=== PATIENT | female | born 1965 | race Caucasian/White ===

== ENCOUNTER 2025-05-19 22:03 | Inpatient (IN) ==
--- NOTE | 2025-05-19 22:35 | Emergency Department Note ---
Impression & Plan Intractable nausea and vomiting Admission ED Provider Note HPI: History obtained from patient. The patient is a 59-year-old female who presents emergency department with intractable nausea and vomiting. Patient states that the symptoms have been ongoing for the past several days, she is noted to have started Zepbound about 2 weeks ago and states she just had a dosage increased on Monday. Patient was seen here in the emergency room earlier today and ultimately discharged home following symptomatic care and lab work. Patient states that she continued to be symptomatic throughout the evening and therefore came back to the ER to be assessed. On arrival here to the ED the patient is actively dry heaving, she is mildly hypertensive but otherwise hemodynamically stable. ROS: - Per HPI Differential Diagnosis: Small bowel obstruction, adverse reaction to medication, gastroparesis, acute cholecystitis, acute appendicitis, viral gastroenteritis, amongst other potential pathologies. *Outpatient medications and allergy history reviewed. PE: General: Alert HEENT: Normocephalic, trachea midline Eyes: Extraocular eye movement is intact, no scleral erythema Pulmonary: Clear to auscultation bilaterally, no wheezing Cardio: Regular rate and rhythm GI: Abdomen is soft to palpation : No suprapubic tenderness MSK: No evidence of trauma or malformation of the extremities, no edema Skin: No evidence of rash Neuro: Alert, no focal deficits Psychiatric: Cooperative INDEPENDENT INTERPRETATIONS: chair finisher: (As interpreted by myself): - An order was placed for continuous cardiac monitoring - Patient was noted to be in sinus rhythm with a rate of 80 Interventions provided in ED: - IV fluid bolus, IV Zofran, IV Phenergan Medical Decision Making: IV was established and lab work obtained, patient was placed on design engineer products. Lab work shows no leukocytosis, hemoglobin is normal, platelet count is normal, CMP does not show any evidence of any critical findings, lactic acid is noted to be within normal limits, there is no evidence of acute kidney injury, lipase is normal. Urinalysis shows 2+ blood but no evidence of any ketones, no infection. CT imaging of the abdomen and pelvis was obtained, there is no evidence of any acute surgical abnormalities, nonspecific thickening of the colon is noted of which the patient was informed for outpatient follow-up. Specifically she was advised to follow-up with her PCP and gastroenterology in regards to potential colonoscopy for further assessment on a nonemergent basis. On my reassessment, the patient states that despite IV Zofran and IV Phenergan here in the ED she continues to feel nauseated. She does not feel that she can hold down any food or liquids. She is requesting inpatient admission. Case was discussed with the on-call hospitalist, Dr. Martin, and the patient was placed for admission in stable condition. Consultants/Discussions held with other healthcare providers: - Hospitalist, Dr. Martin Disposition discussion held by myself with: - Patient Diagnosis: 1. Intractable nausea and vomiting, acute 2. Adverse reaction to medication/GLP-1 Disposition: Admission Juvenal Dwyer DO Emergency Medicine Past Med/Surg History Problem List (Updated 05/20/25 @ 03:00 by Juvenal Dwyer DO) Intractable nausea and vomiting (Acute) Drug side effects (Acute) Intermittent lightheadedness (Acute) Diarrhea (Acute) Gastroenteritis (Acute) Hypertension (Chronic) Depression (Chronic) Lumbar radicular syndrome Narcotic dependence Medical History PTSD (post-traumatic stress disorder) Clostridium difficile infection Morbid obesity with BMI of 50.0-59.9, adult History of kidney stones Hx gestational diabetes Borderline diabetes mellitus Osteoarthritis Fibromyalgia Scoliosis Spinal stenosis GERD (gastroesophageal reflux disease) Schizoaffective disorder Anxiety Double vision with both eyes open since Hyperlipidemia Periodic heart flutter stress test was neg, all d/t stress; 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 Sleep apnea mild, no device Surgical History History of delivery History of root canal procedure History of bilateral tubal ligation History of dilatation and curettage x2 History of colonoscopy History of gynecologic surgery cryosurgery to cervical dysplasia History of vocal cord polypectomy Family History Mother Family history of diabetes mellitus Ovarian cancer Grandmother (Maternal) Family hx of colon cancer Aunt Breast cancer Grandfather Heart disease Father Heart disease Prostate cancer Other No family history of adverse response to anesthesia Denies family history of Colorectal cancer Social History Smoking Status: Never smoker Tobacco Type: Cigarettes Second Hand Exposure: No; Do You Dip or Chew Tobacco: No; Hx Alcohol Use: No Hx Substance Use: No Preferred Language: Swedish Communication Ability: Effective On Site Property Manager Required: No Beliefs That Will Affect Care: Druze Druze Beliefs: denominational Current Living Situation: Family Current Living Situation Comment: Lives with daughter and mother Feels Safe at Home: Yes Assistive Devices: Contacts and Glasses Allergies Allergies Allergy/AdvReac Type Severity Reaction Status Date / Time metoclopramide Allergy Severe "tongue Verified 07/22/24 13:52 goes rigid" risperidone Allergy Severe Tongue Verified 07/22/24 13:52 becomes rigid vancomycin Allergy Intermediate Red Man Verified 07/22/24 13:52 Syndrome codeine Allergy Mild Itchiness Verified 07/22/24 13:52 gabapentin AdvReac Severe Amnesia Verified 07/22/24 13:52 sumatriptan AdvReac Severe Hypotension--"drops Verified 07/22/24 13:52 so fast" duloxetine AdvReac Intermediate Lower Verified 07/22/24 13:52 extremity swelling hydroxyzine AdvReac Intermediate Hallucinati Verified 07/22/24 13:52 ng quetiapine [From Seroquel] AdvReac Intermediate leg Verified 07/22/24 13:52 swelling fluoxetine AdvReac Unknown didnt work Verified 07/22/24 13:52 Home Meds Home Medications Medication Instructions Recorded Confirmed atenolol 25 mg tablet 12.5 mg PO HS 05/15/18 07/22/24 olanzapine 10 mg tablet 10 mg PO HS 05/15/18 07/22/24 olanzapine 2.5 mg tablet 5 mg PO TIDM 05/15/18 07/22/24 tramadol 50 mg tablet 100 mg PO QID PRN Pain 05/15/18 07/22/24 cyclobenzaprine 10 mg tablet 10 mg PO TID PRN Muscle Spasm 12/15/18 07/22/24 bupropion HCl 100 mg tablet 100 mg PO QAM 02/01/19 07/22/24 lisinopril 10 mg tablet 10 mg PO HS 02/01/19 07/22/24 pantoprazole 40 mg tablet,delayed 40 mg PO QAM 02/01/19 07/22/24 release (Protonix) valerian root 100 mg capsule 400 mg PO QDD 02/04/20 07/22/24 ramelteon 8 mg tablet 8 mg PO HS sleep 12/27/20 07/22/24 acetaminophen 500 mg tablet 1,000 mg PO DIRECTED PRN Pain 01/27/22 07/22/24 (Tylenol Extra Strength) ondansetron HCl 4 mg tablet 4 mg PO Q6H PRN NAUSEA/VOMITING 01/27/22 07/22/24 atorvastatin 20 mg tablet 20 mg PO HS 01/15/24 07/22/24 spironolactone 25 mg tablet 25 mg PO DAILY 01/15/24 07/22/24 ibuprofen PO PRN 07/22/24 07/22/24 semaglutide (weight loss) 2.4 2.4 mg subcut Q7D 07/22/24 07/22/24 mg/0.75 mL subcutaneous pen injector ([facility]) Results & Data (ED) Vital Signs Vital Signs - 24 hr 05/19/25 22:17 05/19/25 22:42 05/19/25 22:58 Temperature 36.8 C Temperature Source Oral Pulse Rate 74 77 72 Respiratory Rate 16 22 Respiratory Effort / Characteristics Non-Labored Spontaneous Respiratory Depth Normal Blood Pressure 161/96 H 162/94 H Blood Pressure Mean 117 116 Pulse Oximetry 99 97 Oxygen Delivery Method Room Air Sepsis Recent Fever Within 48 Hours No Sepsis New/Unexplained Change in Mental Status N/A Sepsis Action Taken by Nursing No Action Required 05/20/25 00:00 05/20/25 01:00 05/20/25 02:00 Temperature Temperature Source Pulse Rate 72 70 75 Respiratory Rate 18 16 18 Respiratory Effort / Characteristics Respiratory Depth Blood Pressure 169/100 H 172/103 H 177/102 H Blood Pressure Mean 122 126 130 Pulse Oximetry 96 95 98 Oxygen Delivery Method Sepsis Recent Fever Within 48 Hours Sepsis New/Unexplained Change in Mental Status Sepsis Action Taken by Nursing 05/20/25 02:54 Temperature Temperature Source Pulse Rate 73 Respiratory Rate Respiratory Effort / Characteristics Respiratory Depth Blood Pressure Blood Pressure Mean Pulse Oximetry Oxygen Delivery Method Sepsis Recent Fever Within 48 Hours Sepsis New/Unexplained Change in Mental Status Sepsis Action Taken by Nursing Laboratory Data 05/19/25 22:37 05/19/25 22:37 Lab Results 05/19/25 05/19/25 Range/Units 22:37 23:38 WBC 8.63 (4.8-10.8) K/ul RBC 4.13 L (4.20-5.40) M/uL Hgb 13.5 (12.0-16.0) g/dl Hct 38.1 (37.0-47.0) % MCV 92.3 (80.0-100.0) fL MCH 32.7 (25.0-34.0) pg MCHC 35.4 (32.0-36.0) g/dL RDW Std Deviation 40.8 (36.4-46.3) fL RDW Coeff of Miguel 11.9 (11.5-14.5) % Plt Count 248 (130-400) K/uL MPV 9.1 L (9.4-12.4) fL Immature Gran % (Auto) 0.2 % Neut % (Auto) 82.5 % Lymph % (Auto) 10.3 % Nicholas % (Auto) 6.6 % Eos % (Auto) 0.2 % Baso % (Auto) 0.2 % Neut # (Auto) 7.11 H (1.40-6.50) K/uL Lymph # (Auto) 0.89 L (1.20-3.40) K/uL Nicholas # (Auto) 0.57 (0.11-0.59) K/uL Eos # (Auto) 0.02 (0.00-0.50) K/uL Baso # (Auto) 0.02 (0.00-0.20) K/uL Immature Gran # (Auto) 0.02 (0.01-0.20) K/uL Sodium 137 (136-145) mmol/L Potassium 3.9 (3.5-5.1) mmol/L Chloride 100 (98-107) mmol/L Carbon Dioxide 29 (21-32) mmol/L Anion Gap 8 (3-11) BUN 7 (6-23) mg/dl Creatinine 0.89 (0.6-1.2) mg/dl Est Cr Clr Drug Dosing 88.9 ml/min eGFR 75.57 BUN/Creatinine Ratio 7.9 L (10-20) Glucose 118 H (70-99(Fasting)) mg/dl Lactate 1.0 (0.4-2.0) mmol/L Calcium 9.1 (8.6-10.3) mg/dl Total Bilirubin 1.0 (0.2-1.0) mg/dl AST 15 (13-39) U/L ALT 20 (7-52) U/L Alkaline Phosphatase 71 (34-104) U/L Total Protein 7.1 (6.0-8.3) gm/dl Albumin 4.0 (3.4-5.0) gm/dl Globulin 3.1 (2.5-4.0) gm/dl Albumin/Globulin Ratio 1.3 (0.9-2) Lipase 25 (11-82) U/L Urine Color Yellow Urine Appearance Clear (Clear) Urine pH 7.5 (4.5-7.5) Ur Specific Kiefer 1.015 (1.000-1.030) Urine Protein Negative (Negative) Urine Glucose (UA) Negative (Negative) Urine Ketones Negative (Negative) Urine Blood 2+ H (Negative) Urine Nitrite Negative (Negative) Urine Bilirubin Negative (Negative) Urine Urobilinogen Negative (Negative) Ur Leukocyte Esterase Negative (Negative) Urine RBC 3-5 H (0-2) /hpf Urine WBC 0-5 (0-5) /hpf Ur Epithelial Cells 0-2 (0-2) /hpf Urine Bacteria None Seen (None Seen) Urine Comment Administered Medications Discontinued Medications Sodium Chloride (Nss) 1,000 mls @ 999 mls/hr IV .Q1H1M STA Stop: 05/19/25 23:28 Last Infusion: 05/19/25 23:55 Dose: Infused Documented By: Admin: 05/19/25 22:39 Dose: 999 mls/hr Documented By: MINDA Promethazine HCl (Phenergan) 12.5 mg in 50.5 mls @ 202 mls/hr IV NOW STA Stop: 05/19/25 23:44 Last Infusion: 05/19/25 23:55 Dose: Infused Documented By: Admin: 05/19/25 23:36 Dose: 202 mls/hr Documented By: MINDA Ioversol (Optiray 320 100ml) 93 ml IV ONCE ONE Stop: 05/19/25 23:25 Last Admin: 05/19/25 23:24 Dose: 93 ml Documented By: AN Ondansetron HCl (Ondansetron Inj 2 Mg/Ml 2 Ml Vial) 4 mg IV NOW STA Stop: 05/19/25 22:34 Last Admin: 05/19/25 22:43 Dose: 4 mg Documented By: MINDA Imaging Data Radiologist's Impression: Abdomen/Pelvis CT 05/19/25 22:32 Exam(s): CT ABDOMEN + PELVIS With Contrast IV Amt: 93cc opti 320 EXAM: CT Abdomen and Pelvis With Intravenous Contrast CLINICAL HISTORY: Reason for exam: Intractable nausea and vomiting. TECHNIQUE: Axial computed tomography images of the abdomen and pelvis with intravenous contrast. Automated exposure control was utilized for the study. A dose lowering technique was utilized adhering to the principles of ALARA. CONTRAST: Patient received 93cc opti 320 of IV contrast COMPARISON: CT Abdomen Pelvis dated 01/18/2019 FINDINGS: Lung bases: Unremarkable. No mass. No consolidation. ABDOMEN: Liver: Unremarkable. No mass. Gallbladder and bile ducts: Unremarkable. No calcified stones. No ductal dilation. Pancreas: Unremarkable. No mass. No ductal dilation. Spleen: Unremarkable. No splenomegaly. Adrenals: Unremarkable. No mass. Kidneys and ureters: Unremarkable. No solid mass. No hydronephrosis. Stomach and bowel: Mild colonic wall thickening of the splenic flexure and descending colon and mild surrounding fat stranding. Wall thickening versus nondistention of the rectosigmoid colon. Wall thickening of parts of the proximal to mid transverse colon. No bowel obstruction. PELVIS: Appendix: Normal appendix. Bladder: Unremarkable. No mass. Reproductive: Small uterine calcifications/fibroid. ABDOMEN and PELVIS: Intraperitoneal space: Trace fluid in the pelvis. No free air. Bones/joints: Degenerative changes of the spine. No acute fracture. No dislocation. Soft tissues: Small umbilical hernia containing fat. Vasculature: Unremarkable. No abdominal aortic aneurysm. Lymph nodes: Unremarkable. No enlarged lymph nodes. IMPRESSION: Wall thickening of parts of the colon and mild surrounding stranding as described above. Findings may represent infectious/inflammatory/ischemic colitis. Consider follow-up/colonoscopy to exclude malignancy. Electronically signed by: Ada Dsouza M.D. 05/20/25 02:32 AM Discharge Plan Visit Data Chief Complaint: Nausea Stated Complaint: ILLNESS ED Provider: Juvenal Dwyer Discharge Problem: Intractable nausea and vomiting Patient Disposition: Admitted As Inpatient Condition: Fair Forms Stand Alone Forms: [facility] Prescriptions Prescriptions: No Action Wegovy 2.4 mg/0.75 mL pen injector 2.4 mg subcut Q7D ibuprofen PO PRN spironolactone 25 mg tablet 25 mg PO DAILY cyclobenzaprine 10 mg Tablet 10 mg PO TID PRN (Reason: Muscle Spasm) pantoprazole [Protonix] 40 mg tablet,delayed release (DR/EC) 40 mg PO QAM bupropion HCl 100 mg Tablet 100 mg PO QAM lisinopril 10 mg Tablet 10 mg PO HS atorvastatin 20 mg tablet 20 mg PO HS valerian root 100 mg Capsule 400 mg PO QDD atenolol 25 mg Tablet 12.5 mg PO HS olanzapine 10 mg Tablet 10 mg PO HS olanzapine 2.5 mg Tablet 5 mg PO TIDM Rx Instructions: Dose per patient tramadol 50 mg Tablet 100 mg PO QID PRN (Reason: Pain) ramelteon 8 mg Tablet 8 mg PO HS ondansetron HCl [Zofran] 4 mg Tablet 4 mg PO Q6H PRN (Reason: NAUSEA/VOMITING) acetaminophen [Tylenol Extra Strength] 500 mg Tablet 1,000 mg PO DIRECTED PRN (Reason: Pain) Referrals Referrals: PCP,NO [Physician] -
[2025-05-19] MEDS: SODIUM CHLORIDE 0.9% 1,000 ML IV STA (22:39)
[2025-05-19] MEDS: ONDANSETRON INJ 2 MG/ML 2 ML VIAL IV STA (22:43)
[2025-05-19 22:54] LABS: Hematocrit (blood only) 38.1 % (37.0-47.0); Hemoglobin 13.5 g/dl (12.0-16.0); Immature Granulocytes # (auto) 0.02 K/uL (0.01-0.20); Immature Granulocytes % (auto) 0.2 %; Mean Corpuscular Hemoglobin 32.7 pg (25.0-34.0); Mean Corpuscular Volume 92.3 fL (80.0-100.0); Platelet Count 248 K/uL (130-400); RDW Standard Deviation 40.8 fL (36.4-46.3); Red Blood Count 4.13 M/uL (4.20-5.40); White Blood Count 8.63 K/ul (4.8-10.8)
[2025-05-19 23:13] LABS: Alanine Aminotransferase 20.0 U/L (7-52); Albumin Globulin Ratio 1.3 (0.9-2); Albumin Level 4.0 gm/dl (3.4-5.0); Alkaline Phosphatase 71.0 U/L (34-104); Anion Gap 8.0 (3-11); Bilirubin,Total 1.0 mg/dl (0.2-1.0); Blood Urea Nitrogen 7.0 mg/dl (6-23); Calcium 9.1 mg/dl (8.6-10.3); Carbon Dioxide 29.0 mmol/L (21-32); Chloride 100.0 mmol/L (98-107); Creatinine Clr Calc Pharmacy 88.9 ml/min; Globulin 3.1 gm/dl (2.5-4.0); Glucose 118.0 mg/dl (70-99(Fasting)); Lipase 25.0 U/L (11-82); Potassium 3.9 mmol/L (3.5-5.1); Sodium 137.0 mmol/L (136-145); Total Protein 7.1 gm/dl (6.0-8.3)
[2025-05-19] MEDS: OPTIRAY 320 100ml IV ONE (23:24)
[2025-05-19] MEDS: PROMETHAZINE 12.5 MG/50.5 ML BAG IV STA (23:36)
[2025-05-20 00:18] LABS: Appearance Urine Clear (Clear); Glucose Urine UA Negative (Negative)
[2025-05-20 01:15] LABS: Epithelial Cell Urine 0-2 /hpf (0-2)
--- NOTE | 2025-05-20 02:33 | CT Scan Report ---
Exam(s): CT ABDOMEN + PELVIS With Contrast IV Amt: 93cc opti 320 EXAM: CT Abdomen and Pelvis With Intravenous Contrast CLINICAL HISTORY: Reason for exam: Intractable nausea and vomiting. TECHNIQUE: Axial computed tomography images of the abdomen and pelvis with intravenous contrast. Automated exposure control was utilized for the study. A dose lowering technique was utilized adhering to the principles of ALARA. CONTRAST: Patient received 93cc opti 320 of IV contrast COMPARISON: CT Abdomen Pelvis dated 01/18/2019 FINDINGS: Lung bases: Unremarkable. No mass. No consolidation. ABDOMEN: Liver: Unremarkable. No mass. Gallbladder and bile ducts: Unremarkable. No calcified stones. No ductal dilation. Pancreas: Unremarkable. No mass. No ductal dilation. Spleen: Unremarkable. No splenomegaly. Adrenals: Unremarkable. No mass. Kidneys and ureters: Unremarkable. No solid mass. No hydronephrosis. Stomach and bowel: Mild colonic wall thickening of the splenic flexure and descending colon and mild surrounding fat stranding. Wall thickening versus nondistention of the rectosigmoid colon. Wall thickening of parts of the proximal to mid transverse colon. No bowel obstruction. PELVIS: Appendix: Normal appendix. Bladder: Unremarkable. No mass. Reproductive: Small uterine calcifications/fibroid. ABDOMEN and PELVIS: Intraperitoneal space: Trace fluid in the pelvis. No free air. Bones/joints: Degenerative changes of the spine. No acute fracture. No dislocation. Soft tissues: Small umbilical hernia containing fat. Vasculature: Unremarkable. No abdominal aortic aneurysm. Lymph nodes: Unremarkable. No enlarged lymph nodes. IMPRESSION: Wall thickening of parts of the colon and mild surrounding stranding as described above. Findings may represent infectious/inflammatory/ischemic colitis. Consider follow-up/colonoscopy to exclude malignancy. Electronically signed by: Ada Dsouza M.D. 05/20/25 02:32 AM
[2025-05-20 03:28] LABS: Magnesium 2.2 mg/dl (1.7-2.4)
[2025-05-20] MEDS: ONDANSETRON INJ 2 MG/ML 2 ML VIAL IV STA (03:29)
[2025-05-20] MEDS: FUROSEMIDE 40 MG/4 ML VIAL IV ONE (03:29)
--- NOTE | 2025-05-20 04:02 | History & Physical Report ---
Date of Service May 20, 2025 Assessment & Plan (1) CHF (congestive heart failure): Plan: Assessment and plan below following discussion of case with ED provider and reviewing patient history/pertinent normal/abnormal diagnostic test results. Acute CHF Pulmonary congestion on yesterday's chest x-ray Possibly from uncontrolled blood pressure due to gastroenteritis/Tirzepatide ADR hyperlipidemia, on statin Rx GORGE, as per records Hyperglycemia rule out DM, hx gestational DM as per records seizure disorder as per records, stable off maintenance medications hx fibromyalgia borderline personality disorder/anxiety/mood disorder, mild anxiety during exam past tobacco/alcohol abuse Admit to PCU Baseline BNP, Lasix 1 dose now Strict I/Os, daily weights CHF education Recheck CXR after Lasix TTE May benefit from Cardiology evaluation Clear liquid diet, antiemetics for patient's nausea/vomiting symptoms Check hemoglobin A1c DVT prophylaxis. Lovenox subcu Full code Text document was generated using [facility] voice recognition software. It may contain grammatical or spelling errors. Kindly contact undersigned for clarification of any documentation item in question. History of Present Illness Chief Complaint: Worsening nausea vomiting, SOB, high blood pressure Primary Care Provider: [facility] History obtained from patient, family, and records. Medical history significant for hypertension, hyperlipidemia, GORGE, gestational DM as per records, seizure disorder as per records, obesity on recently switched to tirzepatide, urolithiasis, migraine, fibromyalgia, borderline personality disorder as per records, anxiety/mood disorder, past tobacco/alcohol abuse. Last confinement 2013 for sepsis secondary to C. difficile colitis. Patient PCP recently switched her semaglutide to tirzepatide 2 weeks ago due to weight plateau from former medication. Tirzepatide dose increased last week. Few days later, patient noted achy abdominal pain nausea vomiting watery diarrhea symptoms with transient rectal bleeding. No diarrhea the last 48 hours. SOB worse on exertion. Denies headache, chest pain. Weight loss of 5 pounds since last week as per patient. Blood pressure noted to be high at home as per family. Patient consulted [facility] ER yesterday afternoon. Chest x-ray showed cardiomegaly with pulmonary vascular congestion and probable trace pleural effusions. Symptoms attributed to medications. Patient discharged home. Patient return to ER for worsening symptoms. Uncomfortable going home. Highest SBP of 170s documented at the ER. Medical History as above Surgical History : Cervical cryosurgery, laryngoscopy,D&C, BTL, dental surgery, section Family History : Ovarian cancer, DM, colon cancer, breast cancer, heart disease Personal/Social history : Past tobacco abuse, no EtOH intake, disabled Allergies Allergy/AdvReac Type Severity Reaction Status Date / Time metoclopramide Allergy Severe "tongue Verified 07/22/24 13:52 goes rigid" risperidone Allergy Severe Tongue Verified 07/22/24 13:52 becomes rigid vancomycin Allergy Intermediate Red Man Verified 07/22/24 13:52 Syndrome codeine Allergy Mild Itchiness Verified 07/22/24 13:52 gabapentin AdvReac Severe Amnesia Verified 07/22/24 13:52 sumatriptan AdvReac Severe Hypotension--"drops Verified 07/22/24 13:52 so fast" duloxetine AdvReac Intermediate Lower Verified 07/22/24 13:52 extremity swelling hydroxyzine AdvReac Intermediate Hallucinati Verified 07/22/24 13:52 ng quetiapine [From Seroquel] AdvReac Intermediate leg Verified 07/22/24 13:52 swelling fluoxetine AdvReac Unknown didnt work Verified 07/22/24 13:52 Home Medications Medication Instructions Recorded Confirmed Type atenolol 25 mg tablet 12.5 mg PO HS 05/15/18 05/20/25 History olanzapine 10 mg tablet 10 mg PO UD 05/15/18 05/20/25 History tramadol 50 mg tablet 100 mg PO QID PRN Pain 05/15/18 05/20/25 History cyclobenzaprine 10 mg tablet 10 mg PO TID PRN Muscle Spasm 12/15/18 05/20/25 History bupropion HCl 100 mg tablet 100 mg PO QAM 02/01/19 05/20/25 History lisinopril 10 mg tablet 10 mg PO HS 02/01/19 05/20/25 History pantoprazole 40 mg tablet,delayed 40 mg PO QAM 02/01/19 05/20/25 History release (Protonix) valerian root 100 mg capsule 400 mg PO QDD 02/04/20 05/20/25 History ramelteon 8 mg tablet 8 mg PO HS sleep 12/27/20 05/20/25 History acetaminophen 500 mg tablet 1,000 mg PO DIRECTED PRN Pain 01/27/22 05/20/25 History (Tylenol Extra Strength) ondansetron HCl 4 mg tablet 4 mg PO Q6H PRN NAUSEA/VOMITING 01/27/22 05/20/25 History atorvastatin 20 mg tablet 20 mg PO HS 01/15/24 05/20/25 History spironolactone 25 mg tablet 25 mg PO DAILY 01/15/24 05/20/25 History semaglutide (weight loss) 2.4 10 mg subcut Q7D 07/22/24 05/20/25 History mg/0.75 mL subcutaneous pen injector (Wegovy) ibuprofen 400 mg tablet 400 mg PO Q6H PRN Pain 05/20/25 05/20/25 History Past Med/Surg History Problem List (Updated 05/20/25 @ 10:08 by Sal Martin MD) CHF (congestive heart failure) Intractable nausea and vomiting (Acute) Drug side effects (Acute) Intermittent lightheadedness (Acute) Diarrhea (Acute) Gastroenteritis (Acute) Hypertension (Chronic) Depression (Chronic) Lumbar radicular syndrome Narcotic dependence Medical History PTSD (post-traumatic stress disorder) Clostridium difficile infection Morbid obesity with BMI of 50.0-59.9, adult History of kidney stones Hx gestational diabetes Borderline diabetes mellitus Osteoarthritis Fibromyalgia Scoliosis Spinal stenosis GERD (gastroesophageal reflux disease) Schizoaffective disorder Anxiety Double vision with both eyes open since Hyperlipidemia Periodic heart flutter stress test was neg, all d/t stress; 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 Sleep apnea mild, no device Surgical History History of delivery History of root canal procedure History of bilateral tubal ligation History of dilatation and curettage x2 History of colonoscopy History of gynecologic surgery cryosurgery to cervical dysplasia History of vocal cord polypectomy Family History Mother Family history of diabetes mellitus Ovarian cancer Grandmother (Maternal) Family hx of colon cancer Aunt Breast cancer Grandfather Heart disease Father Heart disease Prostate cancer Other No family history of adverse response to anesthesia Denies family history of Colorectal cancer Social History Smoking Status: Never smoker Tobacco Type: Cigarettes Second Hand Exposure: No; Do You Dip or Chew Tobacco: No; Hx Alcohol Use: No Hx Substance Use: No Preferred Language: Mohawk Communication Ability: Effective 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 Beliefs That Will Affect Care: None Current Living Situation: Family Current Living Situation Comment: Lives with daughter and mother Other Information That Helps Us Care for You: No Feels Safe at Home: Yes Safety Concerns: Feels Safe At This Time Assistive Devices: Glasses Review of Systems Review of Systems: As per HPI, all other systems reviewed and negative Physical Exam Physical Exam: GENERAL: Slightly uncomfortable, slightly anxious, morbidly obese, no respiratory distress SKIN: Normal color, warm HEENT: Bespectacled, pink palpebral conjunctivae, no ptosis, dry buccal mucosa NECK : Supple, no tenderness CHEST : Decreased breath sounds, no tenderness HEART : RRR, no obvious murmurs ABDOMEN: Some distention, central abdominal tenderness EXTREMITIES : Minimal LE swelling, no LE tenderness, palpable pulses, no other conspicuous deformities noted NEUROLOGIC : Coherent, no facial asymmetry, no other gross focality Results & Data Results & Data Vital Signs (Past 12 Hours) Vital Signs Temp Pulse Resp BP Pulse Ox O2 Del Method 05/20/25 02:54 73 05/20/25 02:00 75 18 177/102 H 98 05/20/25 01:00 70 16 172/103 H 95 05/20/25 00:00 72 18 169/100 H 96 05/19/25 22:58 72 22 162/94 H 97 05/19/25 22:42 77 05/19/25 22:17 36.8 C 74 16 161/96 H 99 Room Air Laboratory Results Laboratory Results WBC 8.63 K/ul (4.8-10.8) 05/19/25 22:37 RBC 4.13 M/uL (4.20-5.40) L 05/19/25 22:37 Hgb 13.5 g/dl (12.0-16.0) 05/19/25 22:37 Hct 38.1 % (37.0-47.0) 05/19/25 22:37 MCV 92.3 fL (80.0-100.0) 05/19/25 22:37 MCH 32.7 pg (25.0-34.0) 05/19/25 22:37 MCHC 35.4 g/dL (32.0-36.0) 05/19/25 22:37 RDW Std Deviation 40.8 fL (36.4-46.3) 05/19/25 22:37 RDW Coeff of Miguel 11.9 % (11.5-14.5) 05/19/25 22:37 Plt Count 248 K/uL (130-400) 05/19/25 22:37 MPV 9.1 fL (9.4-12.4) L 05/19/25 22:37 Immature Gran % (Auto) 0.2 % 05/19/25 22:37 Neut % (Auto) 82.5 % 05/19/25:37 Lymph % (Auto) 10.3 % 05/19/25:37 [place] % (Auto) 6.6 % 05/19/25: Eos % (Auto) 0.2 % 05/19/25: Baso % (Auto) 0.2 % 05/19/25:37 Neut # (Auto) 7.11 K/uL (1.40-6.50) H 05/19/25:37 Lymph # (Auto) 0.89 K/uL (1.20-3.40) L 05/19/25 22:37 [place] # (Auto) 0.57 K/uL (0.11-0.59) 05/19/25 22:37 Eos # (Auto) 0.02 K/uL (0.00-0.50) 05/19/25 22:37 Baso # (Auto) 0.02 K/uL (0.00-0.20) 05/19/25 22:37 Immature Gran # (Auto) 0.02 K/uL (0.01-0.20) 05/19/25 22:37 Sodium 137 mmol/L (136-145) 05/19/25 22:37 Potassium 3.9 mmol/L (3.5-5.1) 05/19/25 22:37 Chloride 100 mmol/L (98-107) 05/19/25 22:37 Carbon Dioxide 29 mmol/L (21-32) 05/19/25 22:37 Anion Gap 8 (3-11) 05/19/25 22:37 BUN 7 mg/dl (6-23) 05/19/25 22:37 Creatinine 0.89 mg/dl (0.6-1.2) 05/19/25 22:37 Est Cr Clr Drug Dosing 88.9 ml/min 05/19/25 22:37 eGFR 75.57 05/19/25 22:37 BUN/Creatinine Ratio 7.9 (10-20) L 05/19/25 22:37 Glucose 118 mg/dl (70-99(Fasting)) H 05/19/25 22:37 Lactate 1.0 mmol/L (0.4-2.0) 05/19/25 22:37 Calcium 9.1 mg/dl (8.6-10.3) 05/19/25 22:37 Magnesium 2.2 mg/dl (1.7-2.4) 05/19/25:37 Total Bilirubin 1.0 mg/dl (0.2-1.0) 05/19/25 22:37 AST 15 U/L (13-39) 05/19/25 22:37 ALT 20 U/L (7-52) 05/19/25 22:37 Alkaline Phosphatase 71 U/L (34-104) 05/19/25 22:37 Troponin I High Sens 7.1 pg/ml (0-14) 05/19/25 22:37 Total Protein 7.1 gm/dl (6.0-8.3) 05/19/25 22:37 Albumin 4.0 gm/dl (3.4-5.0) 05/19/25 22:37 Globulin 3.1 gm/dl (2.5-4.0) 05/19/25 22:37 Albumin/Globulin Ratio 1.3 (0.9-2) 05/19/25 22:37 Lipase 25 U/L (11-82) 05/19/25 22:37 Urine Color Yellow 05/19/25 23:38 Urine Appearance Clear (Clear) 05/19/25 23:38 Urine pH 7.5 (4.5-7.5) 05/19/25 23:38 Ur Specific [place] 1.015 (1.000-1.030) 05/19/25 23:38 Urine Protein Negative (Negative) 05/19/25 23:38 Urine Glucose (UA) Negative (Negative) 05/19/25 23:38 Urine Ketones Negative (Negative) 05/19/25 23:38 Urine Blood 2+ (Negative) H 05/19/25 23:38 Urine Nitrite Negative (Negative) 05/19/25 23:38 Urine Bilirubin Negative (Negative) 05/19/25 23:38 Urine Urobilinogen Negative (Negative) 05/19/25 23:38 Ur Leukocyte Esterase Negative (Negative) 05/19/25 23:38 Urine RBC 3-5 /hpf (0-2) H 05/19/25 23:38 Urine WBC 0-5 /hpf (0-5) 05/19/25 23:38 Ur Epithelial Cells 0-2 /hpf (0-2) 05/19/25 23:38 Urine Bacteria None Seen (None Seen) 05/19/25 23:38 Urine Comment 05/19/25 23:38 Impressions Abdomen/Pelvis CT 05/19/25 22:32 Exam(s): CT ABDOMEN + PELVIS With Contrast IV Amt: 93cc opti 320 EXAM: CT Abdomen and Pelvis With Intravenous Contrast CLINICAL HISTORY: Reason for exam: Intractable nausea and vomiting. TECHNIQUE: Axial computed tomography images of the abdomen and pelvis with intravenous contrast. Automated exposure control was utilized for the study. A dose lowering technique was utilized adhering to the principles of ALARA. CONTRAST: Patient received 93cc opti 320 of IV contrast COMPARISON: CT Abdomen Pelvis dated 01/18/2019 FINDINGS: Lung bases: Unremarkable. No mass. No consolidation. ABDOMEN: Liver: Unremarkable. No mass. Gallbladder and bile ducts: Unremarkable. No calcified stones. No ductal dilation. Pancreas: Unremarkable. No mass. No ductal dilation. Spleen: Unremarkable. No splenomegaly. Adrenals: Unremarkable. No mass. Kidneys and ureters: Unremarkable. No solid mass. No hydronephrosis. Stomach and bowel: Mild colonic wall thickening of the splenic flexure and descending colon and mild surrounding fat stranding. Wall thickening versus nondistention of the rectosigmoid colon. Wall thickening of parts of the proximal to mid transverse colon. No bowel obstruction. PELVIS: Appendix: Normal appendix. Bladder: Unremarkable. No mass. Reproductive: Small uterine calcifications/fibroid. ABDOMEN and PELVIS: Intraperitoneal space: Trace fluid in the pelvis. No free air. Bones/joints: Degenerative changes of the spine. No acute fracture. No dislocation. Soft tissues: Small umbilical hernia containing fat. Vasculature: Unremarkable. No abdominal aortic aneurysm. Lymph nodes: Unremarkable. No enlarged lymph nodes. IMPRESSION: Wall thickening of parts of the colon and mild surrounding stranding as described above. Findings may represent infectious/inflammatory/ischemic colitis. Consider follow-up/colonoscopy to exclude malignancy. Electronically signed by: Ada Dsouza M.D. 05/20/25 02:32 AM Diagnostic Findings EKG as per my interpretation (05/19/25) :Rate 80, NSR, normal axis, T wave abnormalities inferior leads
[2025-05-20] MEDS ORDERED: ACETAMINOPHEN 325 MG TAB PO PRN (04:32)
[2025-05-20 05:55] LABS: Hematocrit (blood only) 40.9 % (37.0-47.0); Hemoglobin 14.0 g/dl (12.0-16.0); Immature Granulocytes # (auto) 0.04 K/uL (0.01-0.20); Immature Granulocytes % (auto) 0.5 %; Mean Corpuscular Hemoglobin 31.4 pg (25.0-34.0); Mean Corpuscular Volume 91.7 fL (80.0-100.0); Platelet Count 267 K/uL (130-400); RDW Standard Deviation 40.2 fL (36.4-46.3); Red Blood Count 4.46 M/uL (4.20-5.40); White Blood Count 8.14 K/ul (4.8-10.8)
[2025-05-20] MEDS ORDERED: NITROGLYCERIN SL 0.4 MG/TAB TAB SL PRN (06:13)
[2025-05-20 06:15] LABS: Anion Gap 8.0 (3-11); Blood Urea Nitrogen 6.0 mg/dl (6-23); Calcium 9.4 mg/dl (8.6-10.3); Carbon Dioxide 32.0 mmol/L (21-32); Chloride 97.0 mmol/L (98-107); Creatinine Clr Calc Pharmacy 85.0 ml/min; Glucose 114.0 mg/dl (70-99(Fasting)); Potassium 3.6 mmol/L (3.5-5.1); Sodium 137.0 mmol/L (136-145)
[2025-05-20 06:30] LABS: Thyroid Stimulating Hormone 0.771 uIu/ml (0.300-4.500)
[2025-05-20] MEDS: PROMETHAZINE 12.5 MG/50.5 ML BAG IV PRN (06:30)
[2025-05-20 07:18] LABS: Hemoglobin A1C 5.3 % (4.5-5.6)
[2025-05-20] MEDS: SPIRONOLACTONE 25 MG TAB PO SCH (07:59)
[2025-05-20] MEDS: ENOXAPARIN INJ 40 MG/0.4 ML SYR SQ SCH (07:59)
--- NOTE | 2025-05-20 08:04 | XRay Report ---
EXAM: XR chest 1V portable CLINICAL HISTORY: chf ffup TECHNIQUE: Radiograph of chest was acquired. 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 FINDINGS: There is obscuration of right costophrenic angle. Rest of the lungs are clear. The cardiomediastinal silhouette is within normal limits. No acute osseous abnormality. IMPRESSION: 1. Obscured right costophrenic angle - possibility of mild right pleural effusion - new finding. Advise ultrasound chest correlation. Electronically signed by Mike Pineda 05-20-2025 08:03 AM
--- NOTE | 2025-05-20 12:24 | XCELERA ---
[id number]
--- NOTE | 2025-05-20 13:03 | Hospitalist Progress Note ---
Date of Service May 20, 2025 Assessment & Plan (1) CHF (congestive heart failure): Plan: Nausea, vomiting, transient diarrhea Suspected Tirzepatide adverse reaction DD: Viral gastroenteritis Recently started on Tirzepatide 2 weeks ago for weight loss and the dose was increased last week H/O C diff Colitis Patient states diarrhea resolved --CT ABD:Wall thickening of parts of the colon and mild surrounding stranding as described above. Findings may represent infectious/inflammatory/ischemic colitis. Consider follow-up/colonoscopy to exclude malignancy. --Hold Tirzepatide for now If recurrence of diarrhea, will check stool studies Advance diet as tolerated Will recommend to get colonoscopy as outpatient Chronic leg edema Chronic dyspnea on exertion Suspected acute on chronic diastolic heart failure Vs physical deconditioning --CXR: Obscured right costophrenic angle - possibility of mild right pleural effusion --BNP 121 --ECHO: EF 55 to 60%. Grade 1 diastolic dysfunction. 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 H/O Gestational diabetes HbA1c 5.3 Morbid obesity BMI 42 Other chronic conditions: Seizure disorder--currently not on medications Fibromyalgia/Chronic Pain Borderline personality disorder/anxiety/mood disorder Past tobacco/alcohol abuse Continue home medications as able DVT Px: Lovenox SQ Code Status Full code Admission and Anticipated Discharge Date Admission Date: May 20, 2025 Subjective Patient is seen and examined at bedside States having nausea but no vomiting today No recurrence of diarrhea Reports chronic abdominal pain and dyspnea on exertion No other complaints today Review of Systems Review of Systems: All systems reviewed & are unremarkable except as noted in Subjective Physical Exam Physical Exam: Physical Exam: Vitals signs as noted above General Appearance:Morbidly Obese, no apparent distress Head: normocephalic, Atraumatic Eyes: normal inspection, EOMI Neck: supple, Trachea midline Respiratory/Chest: Normal breath sounds, CTA, No accessory muscle use Cardiovascular: S1, S2, No murmur Abdomen/GI:Soft, mild tender, no guarding or rigidity, bowel sounds present Extremities/Musculoskeletal:normal inspection, Trace pedal edema Neurologic/Psych:AAOX3, grossly no focal neurological deficits Skin: normal color, warm Results & Data Results & Data Vital Signs (Past 12 Hours) Vital Signs Temp Pulse Pulse Resp BP BP BP 05/20/25 11:26 36.4 C L 78 20 136/79 05/20/25 08:20 36.5 C 75 20 143/84 H 05/20/25 07:25 68 05/20/25 06:00 05/20/25 05:34 71 20 159/82 H 05/20/25 04:02 36.9 C 71 19 164/97 H 05/20/25 02:54 73 05/20/25 02:00 75 18 177/102 H 05/20/25 01:00 70 16 172/103 H Pulse Ox O2 Del Method 05/20/25 11:26 99 Room Air 05/20/25 08:20 95 Room Air 05/20/25 07:25 05/20/25 06:00 Room Air 05/20/25 05:34 97 Room Air 05/20/25 04:02 96 Room Air 05/20/25 02:54 05/20/25 02:00 98 05/20/25 01:00 95 Laboratory Results Short CBC 05/19/25 05/20/25 Range/Units 22:37 05:30 WBC 8.63 8.14 (4.8-10.8) K/ul Hgb 13.5 14.0 (12.0-16.0) g/dl Hct 38.1 40.9 (37.0-47.0) % Plt Count 248 267 (130-400) K/uL BMP 05/19/25 05/20/25 22:37 05:30 Sodium 137 137 Potassium 3.9 3.6 Chloride 100 97 L Carbon Dioxide 29 32 BUN 7 6 Creatinine 0.89 0.93 Glucose 118 H 114 H Calcium 9.1 9.4 Liver Function 05/19/25 Range/Units 22:37 Total Bilirubin 1.0 (0.2-1.0) mg/dl AST 15 (13-39) U/L ALT 20 (7-52) U/L Alkaline Phosphatase 71 (34-104) U/L Albumin 4.0 (3.4-5.0) gm/dl Urine 05/19/25 Range/Units 23:38 Urine Color Yellow Urine Appearance Clear (Clear) Urine pH 7.5 (4.5-7.5) Ur Specific [place] 1.015 (1.000-1.030) Urine Protein Negative (Negative) Urine Glucose (UA) Negative (Negative)
[2025-05-20 20:14] VITALS: RESP 18
[2025-05-20] MEDS: OLANZapine 10 MG TAB PO SCH (21:09)
[2025-05-20] MEDS: ATORVASTATIN 20 MG TAB PO SCH (21:09)
[2025-05-20] MEDS: ATENOLOL 25 MG TABLET PO SCH (21:10)
[2025-05-20] MEDS: RAMELTEON 8 MG PO PRN (21:11)
[2025-05-20] MEDS: CYCLOBENZAPRINE HCL 10 MG TAB PO PRN (21:15)
[2025-05-21 03:12] VITALS: O2SAT 95
[2025-05-21 06:44] LABS: Hematocrit (blood only) 37.3 % (37.0-47.0); Hemoglobin 13.1 g/dl (12.0-16.0); Mean Corpuscular Hemoglobin 32.2 pg (25.0-34.0); Mean Corpuscular Volume 91.6 fL (80.0-100.0); Platelet Count 231 K/uL (130-400); RDW Standard Deviation 40.3 fL (36.4-46.3); Red Blood Count 4.07 M/uL (4.20-5.40); White Blood Count 6.88 K/ul (4.8-10.8)
[2025-05-21 07:11] LABS: Anion Gap 9.0 (3-11); Blood Urea Nitrogen 14.0 mg/dl (6-23); Calcium 9.2 mg/dl (8.6-10.3); Carbon Dioxide 29.0 mmol/L (21-32); Chloride 99.0 mmol/L (98-107); Creatinine Clr Calc Pharmacy 68.0 ml/min; Glucose 100.0 mg/dl (70-99(Fasting)); Magnesium 2.3 mg/dl (1.7-2.4); Potassium 3.3 mmol/L (3.5-5.1); Sodium 137.0 mmol/L (136-145)
[2025-05-21 08:37] VITALS: PULSE 77; TEMP 97.7
[2025-05-21] MEDS: POTASSIUM CHLORIDE 10 MEQ TABCR PO ONE (09:04)
--- NOTE | 2025-05-21 11:47 | Hospitalist Progress Note ---
Date of Service May 21, 2025 Assessment & Plan (1) CHF (congestive heart failure): Plan: Nausea, vomiting, transient diarrhea Suspected Tirzepatide adverse reaction DD: Viral gastroenteritis Recently started on Tirzepatide 2 weeks ago for weight loss and the dose was increased last week H/O C diff Colitis Patient states diarrhea resolved --CT ABD:Wall thickening of parts of the colon and mild surrounding stranding as described above. Findings may represent infectious/inflammatory/ischemic colitis. Consider follow-up/colonoscopy to exclude malignancy. --Hold Tirzepatide for now No recurrence of diarrhea while hospitalized Tolerated regular diet Advised to get colonoscopy as outpatient Chronic leg edema Chronic dyspnea on exertion Suspected acute on chronic diastolic heart failure Vs physical deconditioning --CXR: Obscured right costophrenic angle - possibility of mild right pleural effusion --BNP 121 --ECHO: EF 55 to 60%. Grade 1 diastolic dysfunction. 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 H/O Gestational diabetes HbA1c 5.3 Morbid obesity BMI 42 Other chronic conditions: Seizure disorder--currently not on medications Fibromyalgia/Chronic Pain Borderline personality disorder/anxiety/mood disorder Past tobacco/alcohol abuse Continue home medications as able DVT Px: Lovenox SQ Code Status Full code Disposition Home Admission and Anticipated Discharge Date Admission Date: May 20, 2025 Subjective Patient is seen and examined at bedside States feeling better today Reports chronic abdominal pain and dyspnea on exertion Tolerated regular diet Denies any chest pain, nausea, vomiting, dizziness Plan to be discharged home today Review of Systems Review of Systems: All systems reviewed & are unremarkable except as noted in Subjective Physical Exam Physical Exam: Physical Exam: Vitals signs as noted above General Appearance:Morbidly Obese, no apparent distress Head: normocephalic, Atraumatic Eyes: normal inspection, EOMI Neck: supple, Trachea midline Respiratory/Chest: Normal breath sounds, CTA, No accessory muscle use Cardiovascular: S1, S2, No murmur Abdomen/GI:Soft, mild tender, no guarding or rigidity, bowel sounds present Extremities/Musculoskeletal:normal inspection, Trace pedal edema Neurologic/Psych:AAOX3, grossly no focal neurological deficits Skin: normal color, warm Results & Data Results & Data Vital Signs (Past 12 Hours) Vital Signs Temp Pulse Pulse Resp BP BP Pulse Ox 05/21/25 08:36 36.5 C 77 18 96/57 L 95 05/21/25 07:02 71 05/21/25 03:11 36.3 C L 77 18 112/70 95 O2 Del Method 05/21/25 08:36 Room Air 05/21/25 07:02 05/21/25 03:11 Room Air Laboratory Results Short CBC 05/21/25 Range/Units 05:45 WBC 6.88 (4.8-10.8) K/ul Hgb 13.1 (12.0-16.0) g/dl Hct 37.3 (37.0-47.0) % Plt Count 231 (130-400) K/uL BMP 05/21/25 05:45 Sodium 137 Potassium 3.3 L Chloride 99 Carbon Dioxide 29 BUN 14 Creatinine 1.16 Glucose 100 H Calcium 9.2
--- NOTE | 2025-05-21 11:59 | Discharge Summary ---
Date of Service May 21, 2025 Admission HPI Per Admitting Provider History obtained from patient, family, and records. Medical history significant for hypertension, hyperlipidemia, GORGE, gestational DM as per records, seizure disorder as per records, obesity on recently switched to tirzepatide, urolithiasis, migraine, fibromyalgia, borderline personality disorder as per records, anxiety/mood disorder, past tobacco/alcohol abuse. Last confinement 2013 for sepsis secondary to C. difficile colitis. Patient PCP recently switched her semaglutide to tirzepatide 2 weeks ago due to weight plateau from former medication. Tirzepatide dose increased last week. Few days later, patient noted achy abdominal pain nausea vomiting watery diarrhea symptoms with transient rectal bleeding. No diarrhea the last 48 hours. SOB worse on exertion. Denies headache, chest pain. Weight loss of 5 pounds since last week as per patient. Blood pressure noted to be high at home as per family. Patient consulted [facility] ER yesterday afternoon. Chest x-ray showed cardiomegaly with pulmonary vascular congestion and probable trace pleural effusions. Symptoms attributed to medications. Patient discharged home. Patient return to ER for worsening symptoms. Uncomfortable going home. Highest SBP of 170s documented at the ER. Medical History as above Surgical History : Cervical cryosurgery, laryngoscopy,D&C, BTL, dental surgery, section Family History : Ovarian cancer, DM, colon cancer, breast cancer, heart disease Personal/Social history : Past tobacco abuse, no EtOH intake, disabled Admission Exam Per Admitting Provider GENERAL: Slightly uncomfortable, slightly anxious, morbidly obese, no respiratory distress SKIN: Normal color, warm HEENT: Bespectacled, pink palpebral conjunctivae, no ptosis, dry buccal mucosa NECK : Supple, no tenderness CHEST : Decreased breath sounds, no tenderness HEART : RRR, no obvious murmurs ABDOMEN: Some distention, central abdominal tenderness EXTREMITIES : Minimal LE swelling, no LE tenderness, palpable pulses, no other conspicuous deformities noted NEUROLOGIC : Coherent, no facial asymmetry, no other gross focality Principal Diagnosis Drug reaction Chronic abdominal pain Hypertension Acute Diastolic heart failure Discharge Data Allergies Allergy/AdvReac Type Severity Reaction Status Date / Time metoclopramide Allergy Severe "tongue Verified 07/22/24 13:52 goes rigid" risperidone Allergy Severe Tongue Verified 07/22/24 13:52 becomes rigid vancomycin Allergy Intermediate Red Man Verified 07/22/24 13:52 Syndrome codeine Allergy Mild Itchiness Verified 07/22/24 13:52 gabapentin AdvReac Severe Amnesia Verified 07/22/24 13:52 sumatriptan AdvReac Severe Hypotension--"drops Verified 07/22/24 13:52 so fast" duloxetine AdvReac Intermediate Lower Verified 07/22/24 13:52 extremity swelling hydroxyzine AdvReac Intermediate Hallucinati Verified 07/22/24 13:52 ng quetiapine [From Seroquel] AdvReac Intermediate leg Verified 07/22/24 13:52 swelling fluoxetine AdvReac Unknown didnt work Verified 07/22/24 13:52 Consultations 05/20/25 02:50 ED Decision to Admit Stat Procedures Performed Laboratory Results WBC 6.88 K/ul (4.8-10.8) 05/21/25 05:45 RBC 4.07 M/uL (4.20-5.40) L 05/21/25 05:45 Hgb 13.1 g/dl (12.0-16.0) 05/21/25 05:45 Hct 37.3 % (37.0-47.0) 05/21/25 05:45 MCV 91.6 fL (80.0-100.0) 05/21/25 05:45 MCH 32.2 pg (25.0-34.0) 05/21/25 05:45 MCHC 35.1 g/dL (32.0-36.0) 05/21/25 05:45 RDW Std Deviation 40.3 fL (36.4-46.3) 05/21/25 05:45 RDW Coeff of Miguel 12.0 % (11.5-14.5) 05/21/25 05:45 Plt Count 231 K/uL (130-400) 05/21/25 05:45 MPV 9.2 fL (9.4-12.4) L 05/21/25 05:45 Immature Gran % (Auto) 0.5 % 05/20/25 05:30 Neut % (Auto) 77.7 % 05/20/25 05:30 Lymph % (Auto) 14.3 % 05/20/25 05:30 [place] % (Auto) 7.1 % 05/20/25 05:30 Eos % (Auto) 0.2 % 05/20/25 05:30 Baso % (Auto) 0.2 % 05/20/25 05:30 Neut # (Auto) 6.32 K/uL (1.40-6.50) 05/20/25 05:30 Lymph # (Auto) 1.16 K/uL (1.20-3.40) L 05/20/25 05:30 [place] # (Auto) 0.58 K/uL (0.11-0.59) 05/20/25 05:30 Eos # (Auto) 0.02 K/uL (0.00-0.50) 05/20/25 05:30 Baso # (Auto) 0.02 K/uL (0.00-0.20) 05/20/25 05:30 Immature Gran # (Auto) 0.04 K/uL (0.01-0.20) 05/20/25 05:30 Sodium 137 mmol/L (136-145) 05/21/25 05:45 Potassium 3.3 mmol/L (3.5-5.1) L 05/21/25 05:45 Chloride 99 mmol/L (98-107) 05/21/25 05:45 Carbon Dioxide 29 mmol/L (21-32) 05/21/25 05:45 Anion Gap 9 (3-11) 05/21/25 05:45 BUN 14 mg/dl (6-23) 05/21/25 05:45 Creatinine 1.16 mg/dl (0.6-1.2) 05/21/25 05:45 Est Cr Clr Drug Dosing 68.0 ml/min 05/21/25 05:45 eGFR 54.99 05/21/25 05:45 BUN/Creatinine Ratio 12.1 (10-20) 05/21/25 05:45 Glucose 100 mg/dl (70-99(Fasting)) H 05/21/25 05:45 Estimat Average Glucose 105 mg/dl 05/20/25 05:30 Hemoglobin A1c 5.3 % (4.5-5.6) 05/20/25 05:30 Lactate 1.0 mmol/L (0.4-2.0) 05/19/25 22:37 Calcium 9.2 mg/dl (8.6-10.3) 05/21/25 05:45 Magnesium 2.3 mg/dl (1.7-2.4) 05/21/25 05:45 Total Bilirubin 1.0 mg/dl (0.2-1.0) 05/19/25 22:37 AST 15 U/L (13-39) 05/19/25 22:37 ALT 20 U/L (7-52) 05/19/25 22:37 Alkaline Phosphatase 71 U/L (34-104) 05/19/25 22:37 Troponin I High Sens 7.1 pg/ml (0-14) 05/19/25 22:37 B-Natriuretic Peptide 121 pg/ml (0-100) H 05/20/25 05:30 Total Protein 7.1 gm/dl (6.0-8.3) 05/19/25 22:37 Albumin 4.0 gm/dl (3.4-5.0) 05/19/25 22:37 Globulin 3.1 gm/dl (2.5-4.0) 05/19/25 22:37 Albumin/Globulin Ratio 1.3 (0.9-2) 05/19/25 22:37 Lipase 25 U/L (11-82) 05/19/25 22:37 TSH 0.771 uIu/ml (0.300-4.500) 05/20/25 05:30 Urine Color Yellow 05/19/25 23:38 Urine Appearance Clear (Clear) 05/19/25 23:38 Urine pH 7.5 (4.5-7.5) 05/19/25 23:38 Ur Specific [place] 1.015 (1.000-1.030) 05/19/25 23:38 Urine Protein Negative (Negative) 05/19/25 23:38 Urine Glucose (UA) Negative (Negative) 05/19/25 23:38 Urine Ketones Negative (Negative) 05/19/25 23:38 Urine Blood 2+ (Negative) H 05/19/25 23:38 Urine Nitrite Negative (Negative) 05/19/25 23:38 Urine Bilirubin Negative (Negative) 05/19/25 23:38 Urine Urobilinogen Negative (Negative) 05/19/25 23:38 Ur Leukocyte Esterase Negative (Negative) 05/19/25 23:38 Urine RBC 3-5 /hpf (0-2) H 05/19/25 23:38 Urine WBC 0-5 /hpf (0-5) 05/19/25 23:38 Ur Epithelial Cells 0-2 /hpf (0-2) 05/19/25 23:38 Urine Bacteria None Seen (None Seen) 05/19/25 23:38 Urine Comment 05/19/25 23:38 Impressions Abdomen/Pelvis CT 05/19/25 22:32 Exam(s): CT ABDOMEN + PELVIS With Contrast IV Amt: 93cc opti 320 EXAM: CT Abdomen and Pelvis With Intravenous Contrast CLINICAL HISTORY: Reason for exam: Intractable nausea and vomiting. TECHNIQUE: Axial computed tomography images of the abdomen and pelvis with intravenous contrast. Automated exposure control was utilized for the study. A dose lowering technique was utilized adhering to the principles of ALARA. CONTRAST: Patient received 93cc opti 320 of IV contrast COMPARISON: CT Abdomen Pelvis dated 01/18/2019 FINDINGS: Lung bases: Unremarkable. No mass. No consolidation. ABDOMEN: Liver: Unremarkable. No mass. Gallbladder and bile ducts: Unremarkable. No calcified stones. No ductal dilation. Pancreas: Unremarkable. No mass. No ductal dilation. Spleen: Unremarkable. No splenomegaly. Adrenals: Unremarkable. No mass. Kidneys and ureters: Unremarkable. No solid mass. No hydronephrosis. Stomach and bowel: Mild colonic wall thickening of the splenic flexure and descending colon and mild surrounding fat stranding. Wall thickening versus nondistention of the rectosigmoid colon. Wall thickening of parts of the proximal to mid transverse colon. No bowel obstruction. PELVIS: Appendix: Normal appendix. Bladder: Unremarkable. No mass. Reproductive: Small uterine calcifications/fibroid. ABDOMEN and PELVIS: Intraperitoneal space: Trace fluid in the pelvis. No free air. Bones/joints: Degenerative changes of the spine. No acute fracture. No dislocation. Soft tissues: Small umbilical hernia containing fat. Vasculature: Unremarkable. No abdominal aortic aneurysm. Lymph nodes: Unremarkable. No enlarged lymph nodes. IMPRESSION: Wall thickening of parts of the colon and mild surrounding stranding as described above. Findings may represent infectious/inflammatory/ischemic colitis. Consider follow-up/colonoscopy to exclude malignancy. Electronically signed by: Ada Dsouza M.D. 05/20/25 02:32 AM Chest X-Ray 05/20/25 07:00 EXAM: XR chest 1V portable CLINICAL HISTORY: chf ffup TECHNIQUE: Radiograph of chest was acquired. COMPARISON: 09/26/2024 17:22:00 TELEGRAPH OPERATOR. FINDINGS: There is obscuration of right costophrenic angle. Rest of the lungs are clear. The cardiomediastinal silhouette is within normal limits. No acute osseous abnormality. IMPRESSION: 1. Obscured right costophrenic angle - possibility of mild right pleural effusion - new finding. Advise ultrasound chest correlation. Electronically signed by Mike Pineda 05-20-2025 08:03 AM Ordered Studies 05/19/25 22:32 CT abd pelvis IV con only Stat Hospital Course (1) CHF (congestive heart failure): Nausea, vomiting, transient diarrhea Suspected Tirzepatide adverse reaction DD: Viral gastroenteritis Recently started on Tirzepatide 2 weeks ago for weight loss and the dose was increased last week H/O C diff Colitis Patient states diarrhea resolved --CT ABD:Wall thickening of parts of the colon and mild surrounding stranding as described above. Findings may represent infectious/inflammatory/ischemic colitis. Consider follow-up/colonoscopy to exclude malignancy. --Hold Tirzepatide for now No recurrence of diarrhea while hospitalized Tolerated regular diet Advised to get colonoscopy as outpatient Chronic leg edema Chronic dyspnea on exertion Suspected acute on chronic diastolic heart failure Vs physical deconditioning --CXR: Obscured right costophrenic angle - possibility of mild right pleural effusion --BNP 121 --ECHO: EF 55 to 60%. Grade 1 diastolic dysfunction. Mild pulmonic valve regurgitation Received IV Lasix Currently on Aldactone 25 mg daily Will consider to transition Aldactone to Lasix Monitor volume status Advised to follow-up with cardiology as outpatient for possible stress test given persistent dyspnea on exertion for many months to year Hypertension Variable BP Currently on atenolol 12.5 mg at bedtime and lisinopril 10 mg daily Increased lisinopril to 20 mg daily Monitor and adjust medications as needed Hyperlipidemia Continue atorvastatin GORGE Currently not using CPAP Inside Sales Professional compliance using CPAP H/O Gestational diabetes HbA1c 5.3 Morbid obesity BMI 42 Other chronic conditions: Seizure disorder--currently not on medications Fibromyalgia/Chronic Pain Borderline personality disorder/anxiety/mood disorder Past tobacco/alcohol abuse Continue home medications as able DVT Px: Lovenox SQ Code Status Full code Disposition Home Total Time Total Time Spent Total Time Spent (In Minutes): 43 minutes Discharge Plan Discharge Items Patient Disposition: Home - Self-Care Reason For Visit: CHF Discharge Diagnosis: Drug reaction Chronic abdominal pain Hypertension Acute Diastolic heart failure Condition on Discharge: Fair Activity: Per Instructions section Exercise/Sports: Gradually increase as tolerated Non-emergency contact: Primary Care Provider, Speed Belt Sander Tender and Universal Grinder Set Up Operator Call non-emergency contact if: you have any medication questions, your symptoms worsen, your pain is concerning for you and you have a fever Follow-up/Referrals: [facility],Hospital [Primary Care Provider] - (The [place] will contact you with a follow up appointment.) Diet: Heart Healthy Add Attending Provider Instructions: -- Follow-up with your primary care physician in [place] in 1 week -- Follow-up with your sample hand for possible stress test as outpatient --Follow-up with your sighter for colonoscopy given persistent chronic abdominal discomfort -Monitor your blood pressure regularly as advised and discussed with your primary care physician for further adjustment of medications as needed- -- Stop taking tirzepatide (Zepbound) until further recommendations from your primary care physician. Seek immediate medical attention if your symptoms reoccur or worsen Please review medication list provided on discharge for any medication changes as instructed. Please call if you have any questions or problems. You can reach a [facility] hospitalist on duty at [facility] 24 hours a day by calling [phone] Nathen Windows Server Specialist Provider Instructions: Call your Primary Care doctor if any of the following symptoms or problems start or get worse: * Shortness of breath or difficulty breathing * Wake up at night short of breath * Chest pain * Cough * Swelling of your hands, feet, or legs * More fatigued or tired with your normal activity * Palpitations - sudden fast heart beats WEIGHT * Weigh yourself every morning after using the bathroom. * Use the same scale. * Wear the same amount of clothing. * Write your weight down on a chart. * Call your Primary Care doctor if you gain more than 2-3 pounds in 1-2 days. MEDICATIONS * Use this discharge instruction sheet for medication instructions. * Take your medications at the time your doctor ordered. * Do not skip a dose of your medicines. * If you miss a dose of medicine, take it as soon as possible, but DO NOT DOUBLE A DOSE. * Read your medicine information when you get home. * Know all of the side effects of your medicine. If in doubt, ask your pharmacist * Call your Primary Care doctor's office if you have any side effects. * Be sure all of your doctors know what medicine and herbs you take (including cold, flu, and herbal medicine). Take the following with you to your follow-up doctor appointments: * Weight Chart * Medication List * List of questions Do not drink excessive alcohol, beer or wine. Pending Studies at Discharge: No Stand-Alone Forms: [facility], Sm[facility] Cess[facility] Medications and DC Order Prescriptions: New lisinopril 20 mg tablet 20 mg PO DAILY Qty: 30 0RF furosemide [Lasix] 20 mg tablet 20 mg PO DAILY Qty: 30 0RF Continued Wegovy 2.4 mg/0.75 mL pen injector 10 mg subcut Q7D cyclobenzaprine 10 mg Tablet 10 mg PO TID PRN (Reason: Muscle Spasm) pantoprazole [Protonix] 40 mg tablet,delayed release (DR/EC) 40 mg PO QAM bupropion HCl 100 mg Tablet 100 mg PO QAM atorvastatin 20 mg tablet 20 mg PO HS valerian root 100 mg Capsule 400 mg PO QDD atenolol 25 mg Tablet 12.5 mg PO HS olanzapine 10 mg Tablet 10 mg PO UD Patient Comments: Takes 5mg AM, Noon and 10mg HS tramadol 50 mg Tablet 100 mg PO QID PRN (Reason: Pain) ramelteon 8 mg Tablet 8 mg PO HS ondansetron HCl [Zofran] 4 mg Tablet 4 mg PO Q6H PRN (Reason: NAUSEA/VOMITING) acetaminophen [Tylenol Extra Strength] 500 mg Tablet 1,000 mg PO DIRECTED PRN (Reason: Pain) ibuprofen [Motrin] 400 mg Tablet 400 mg PO Q6H PRN (Reason: Pain) Discontinued spironolactone 25 mg tablet 25 mg PO DAILY lisinopril 10 mg Tablet 10 mg PO HS Discharge Orders: Discharge Order (Routine); Ordered 05/21/25 Ordered By: Luis Bose Admission Data Admit Date/Time: 05/20/25 04:03 Attending Provider: Luis Bose Admit Provider: Sal Martin Primary Care Provider: [facility] Other Providers: Sal Martin
[2025-05-21 12:05] VITALS: BP 112/70
== END 2025-05-21 13:38 | disposition home or self-care (01) | DRG 291 ==
LOC: ED 22:03 → 4W 05-20 04:03